=== PATIENT | female | born 1950 | race Hispanic/Latino ===

== ENCOUNTER 2017-07-20 09:16 | Inpatient (IN) | payer OTHER ==
[~2017-07-20] VITALS: Ht 149.9 cm; Wt 60.1 kg
[2017-07-20 10:07] LABS: HEMATOCRIT 24.1 % (36-48); MEAN CORPUSCULAR HEMOGLOBIN 36.3 pg (27.0-33.0); MEAN CORPUSCULAR HGB CONC 33.2 g/dL (32.0-36.0); MEAN CORPUSCULAR VOLUME 109.3 fL (79-99); NUCLEATED RED BLOOD CELLS 0.2 % (0.0-0.19); PLATELET COUNT (AUTO) 170 K/uL (130-400); RED CELL DISTRIBUTION WIDTH 14.1 % (11.0-15.5); WHITE BLOOD COUNT (AUTO) 2.8 K/uL (4.8-10.8)
[2017-07-20 10:18] LABS: CREATININE 5.5 mg/dL (0.5-1.5)
[2017-07-20 10:33] LABS: PARTIAL THROMBOPLASTIN TIME 25.7 SEC (26.3-35.5); PROTHROMBIN TIME 10.5 SEC (9.6-11.6)
[2017-07-20 11:13] LABS: LYMPHOCYTES % (MANUAL) 32 % (22-44); MAN.DIFF COMMENT-IMPRESSION MANUAL DIFFERENTIAL; MONOCYTES % (MANUAL) 8 % (2-9); SEGMENTED NEUTROPHILS % 60 % (40-70)
[2017-07-20 11:14] LABS: PLATELET MORPHOLOGY COMMENT LARGE PLTS PRESENT
[2017-07-20] MEDS ORDERED: COMPOUND IV MISC 1 EACH IVSOLN MISC PRN (12:00)
[2017-07-20] MEDS ORDERED: LIDOCAINE HCL 1% MDV 50ML VIAL ONE (12:51)
[2017-07-20] MEDS ORDERED: CEFAZOLIN 1GM / D5W 50ML 50 ML ONE (13:17)
[2017-07-20 14:20] VITALS: BP 173/60
[2017-07-20 15:48] LABS: ALBUMIN 3.5 g/dL (3.5-5.0); CREATININE 5.4 mg/dL (0.5-1.5)
[2017-07-20 16:00] VITALS: BP 157/60
[2017-07-20 16:02] LABS: HEMOGLOBIN A1C 5.5 % (4.0-6.0)
[2017-07-20 16:17] LABS: % IRON SATURATION 35.9 % (22-44)
[2017-07-20 19:00] VITALS: BP 115/50
[2017-07-20] MEDS ORDERED: HEPARIN SODIUM 5000UNIT/ML 1ML VIAL ONE (19:19)
[2017-07-20] MEDS ORDERED: LOSA100T29 PO (21:28)
[2017-07-20] MEDS ORDERED: EZET10TA26 PO (21:28)
[2017-07-20] MEDS ORDERED: RITO100T PO (21:28)
[2017-07-20] MEDS ORDERED: LEVO5TAB13 PO (21:28)
[2017-07-20] MEDS ORDERED: [UNRECOGNIZED DRUG - CODE] PO (21:28)
[2017-07-20] MEDS ORDERED: FURO40TA5 PO (21:28)
[2017-07-20] MEDS ORDERED: FENO145T37 PO (21:28)
[2017-07-20] MEDS ORDERED: METO50TA18 PO (21:28)
[2017-07-20] MEDS ORDERED: [UNRECOGNIZED DRUG - CODE] PO (21:28)
[2017-07-20] MEDS ORDERED: CYAN-35 PO (21:28)
[2017-07-20] MEDS ORDERED: LEVO75TA10 PO (21:28)
[2017-07-20] MEDS ORDERED: OMEG-125 PO (21:28)
[2017-07-20] MEDS ORDERED: DARU600T PO (21:28)
[2017-07-20] MEDS ORDERED: HYDR-4153 PO (21:28)
[2017-07-20] MEDS ORDERED: METO100T14 PO (21:28)
[2017-07-20] MEDS ORDERED: ERGO500014 PO (21:28)
[2017-07-20] MEDS ORDERED: ATOR40TA71 PO (21:28)
[2017-07-20] MEDS ORDERED: FOLI1TAB85 PO (21:28)
[2017-07-20] MEDS ORDERED: DEXTROSE 50%-WATER 50 ML DISP.SYRIN IV PRN (21:30)
[2017-07-20] MEDS ORDERED: ACETAMINOPHEN 325 MG TAB PO PRN (21:30)
[2017-07-20] MEDS ORDERED: SODIUM CHLORIDE 0.9% 1000ML 1,000 ML IV PRN (21:30)
[2017-07-20] MEDS ORDERED: SODIUM CHLORIDE 0.9% 10 ML VIAL IVP PRN (21:30)
[2017-07-20] MEDS ORDERED: 0.9% SODIUM CHLORIDE 250 ML IV BAG IV PRN (21:30)
[2017-07-20] MEDS ORDERED: HEPARIN SODIUM 5000UNIT/ML 1ML VIAL IJ PRN (21:30)
[2017-07-20] MEDS ORDERED: ALBUMIN (HUMAN) 25% 100 ML IV PRN (21:30)
[2017-07-20] MEDS ORDERED: GLUCAGON 1MG KIT 1 MG ML IM PRN (21:30)
[2017-07-20] MEDS: EPOETIN ALFA 10,000 UNIT/ML VIAL SQ SCH (22:40)
[2017-07-20 23:00] VITALS: BP_SYST 137; BP_SYST 155; BP_DIAS 46; BP_DIAS 84
[2017-07-21 03:00] VITALS: BP 124/44
[2017-07-21 05:28] LABS: WHITE BLOOD COUNT (AUTO) 3.3 K/uL (4.8-10.8)
[2017-07-21 05:37] LABS: PHOSPHORUS 4.2 mg/dL (2.5-4.9); POTASSIUM 4.2 mmol/L (3.5-5.1)
[2017-07-21 05:40] LABS: MEAN CORPUSCULAR VOLUME 108.8 fL (79-99); NUCLEATED RED BLOOD CELLS 0.1 % (0.0-0.19); PLATELET COUNT (AUTO) 147 K/uL (130-400); RED BLOOD CELL COUNT(AUTO) 1.88 MIL/uL (4.00-5.50)
[2017-07-21 05:42] LABS: HEMATOCRIT 20.5 % (36-48)
[2017-07-21 05:44] LABS: EOSINOPHILS % (MANUAL) 4 % (1-6); LYMPHOCYTES % (MANUAL) 28 % (22-44); MAN.DIFF COMMENT-IMPRESSION MANUAL DIFFERENTIAL; MONOCYTES % (MANUAL) 12 % (2-9); PLATELET MORPHOLOGY COMMENT SLIGHTLY DECREASED; SEGMENTED NEUTROPHILS % 56 % (40-70)
[2017-07-21] MEDS: INSULIN R PO SS1 SQ SCH ×4 (06:14→20:22)
[2017-07-21] MEDS ORDERED: FLU VACC QS2017-18 36MOS UP/PF 60 MCG/0.5 ML ML IM ONE (06:30)
[2017-07-21 07:22] VITALS: BP 146/60
[2017-07-21] MEDS ORDERED: LOSARTAN 100 MG TABLET PO SCH (09:00)
[2017-07-21 11:58] VITALS: BP 138/60
[2017-07-21] MEDS: LOSARTAN 100 MG TABLET PO SCH (12:07)
[2017-07-21] MEDS: DARUNAVIR ETHANOLATE 600 MG TABLET PO SCH ×2 (12:07→20:32)
[2017-07-21] MEDS: RITONAVIR 100 MG TABLET PO SCH ×2 (12:08→20:32)
[2017-07-21] MEDS: LAMIVUDINE 300 MG PO SCH (12:10)
[2017-07-21] MEDS: CETIRIZINE HCL 5 MG TABLET PO SCH (12:10)
[2017-07-21] MEDS: ZIDOVUDINE 300 MG PO SCH ×2 (12:11→20:33)
[2017-07-21] MEDS: IRON SUCROSE COMPLEX 100 MG in SODIUM CHLORIDE 0.9% 50 ML IV SCH (12:11)
[2017-07-21] MEDS ORDERED: ALBUMIN (HUMAN) 25% 100 ML IV PRN (12:30)
[2017-07-21] MEDS ORDERED: HEPARIN SODIUM 5000UNIT/ML 1ML VIAL IJ PRN (12:30)
[2017-07-21] MEDS ORDERED: 0.9% SODIUM CHLORIDE 250 ML IV BAG IV PRN (12:30)
[2017-07-21] MEDS ORDERED: SODIUM CHLORIDE 0.9% 1000ML 1,000 ML IV PRN (12:30)
[2017-07-21] MEDS ORDERED: CEFAZOLIN 2GM / 50 ML 50 ML IV SCH (14:30)
[2017-07-21] MEDS ORDERED: EPOETIN ALFA 10,000 UNIT/ML VIAL SQ SCH (15:00)
[2017-07-21] MEDS ORDERED: WATER FOR INJECTION,STERILE 20 ML VIAL IJ SCH (15:30)
[2017-07-21] MEDS: CEFAZOLIN SODIUM 1 GM VIAL IVP SCH (15:30)
[2017-07-21 16:26] VITALS: BP 145/51
[2017-07-21] MEDS: EPOETIN ALFA 10,000 UNIT/ML VIAL SQ SCH (17:18)
[2017-07-21 19:00] VITALS: BP 136/60
[2017-07-21] MEDS: ATORVASTATIN CALCIUM 40 MG TABLET PO SCH (20:32)
[2017-07-21] MEDS: EZETIMIBE 10 MG TAB PO SCH (20:33)
[2017-07-21] MEDS: FENOFIBRATE NANOCRYSTALLIZED 145 MG TAB PO SCH (20:33)
[2017-07-21] MEDS ORDERED: ONDANSETRON HCL 4 MG/2 ML VIAL IVP PRN (21:15)
[2017-07-21] MEDS ORDERED: ONDANSETRON HCL 4 MG/2 ML VIAL ONE (21:41)
[2017-07-21 23:00] VITALS: BP 142/57
[2017-07-22 03:00] VITALS: BP 143/69
[2017-07-22] MEDS: INSULIN R PO SS1 SQ SCH ×4 (06:42→20:59)
[2017-07-22] MEDS: LEVOTHYROXINE 75 MCG TABLET PO SCH (06:42)
[2017-07-22 07:20] VITALS: BP 137/55
[2017-07-22] MEDS: ZIDOVUDINE 300 MG PO SCH ×2 (09:00→21:00)
[2017-07-22] MEDS: DARUNAVIR ETHANOLATE 600 MG TABLET PO SCH ×2 (09:00→21:34)
[2017-07-22] MEDS: CETIRIZINE HCL 5 MG TABLET PO SCH (09:00)
[2017-07-22] MEDS: LAMIVUDINE 300 MG PO SCH (09:00)
[2017-07-22] MEDS: RITONAVIR 100 MG TABLET PO SCH ×2 (09:00→21:34)
[2017-07-22] MEDS: IRON SUCROSE COMPLEX 100 MG in SODIUM CHLORIDE 0.9% 50 ML IV SCH (09:00)
[2017-07-22 09:21] LABS: HEPATITIS Bs ANTIGEN SCREEN P Negative (Negative)
[2017-07-22] MEDS ORDERED: BUPIVACAINE/PF 0.25% 30ML VIAL IJ ONE (09:55)
[2017-07-22] MEDS ORDERED: LIDOCAINE HCL 1% 20 ML VIAL ONE (09:55)
[2017-07-22] MEDS ORDERED: SODIUM BICARB [NEONATAL] 4.2% 10ML SYG ONE (09:55)
[2017-07-22] MEDS ORDERED: PAPAVERINE HCL 30 MG/ML 2ML VIAL ONE (09:55)
[2017-07-22] MEDS ORDERED: THROMBIN-JMI 5000 UNIT/VIAL TP ONE (09:56)
[2017-07-22] MEDS ORDERED: NEOMY SULF/POLYMYXIN B SULFATE 1 ML AMPUL IR ONE (09:56)
[2017-07-22] MEDS ORDERED: OCTYL 2-CYANOACRYLATE 1 EACH TP ONE (09:57)
[2017-07-22] MEDS ORDERED: GENTAMICIN 80 MG/NS 100 ML PB 100 ML IV SCH (10:30)
[2017-07-22] MEDS: LOSARTAN 100 MG TABLET PO SCH (10:43)
[2017-07-22 12:00] VITALS: BP 149/65
[2017-07-22] MEDS: EPOETIN ALFA 10,000 UNIT/ML VIAL SQ SCH (15:00)
[2017-07-22 16:00] VITALS: BP 161/73
[2017-07-22 20:00] VITALS: BP 121/64
[2017-07-22] MEDS: ATORVASTATIN CALCIUM 40 MG TABLET PO SCH (21:34)
[2017-07-22] MEDS: FENOFIBRATE NANOCRYSTALLIZED 145 MG TAB PO SCH (22:12)
[2017-07-22] MEDS: EZETIMIBE 10 MG TAB PO SCH (22:12)
[2017-07-23] VITALS (29 sets, daily range): BP systolic 130–187; BP diastolic 52–88
[2017-07-23 04:15] LABS: HEMATOCRIT 21.2 % (36-48); MEAN CORPUSCULAR HEMOGLOBIN 37.9 pg (27.0-33.0); MEAN CORPUSCULAR HGB CONC 34.6 g/dL (32.0-36.0); MEAN CORPUSCULAR VOLUME 109.4 fL (79-99); NUCLEATED RED BLOOD CELLS 0.1 % (0.0-0.19); PLATELET COUNT (AUTO) 132 K/uL (130-400); RED BLOOD CELL COUNT(AUTO) 1.94 MIL/uL (4.00-5.50); RED CELL DISTRIBUTION WIDTH 14.2 % (11.0-15.5); WHITE BLOOD COUNT (AUTO) 2.9 K/uL (4.8-10.8)
[2017-07-23 04:20] LABS: CREATININE 5.2 mg/dL (0.5-1.5); PHOSPHORUS 4.8 mg/dL (2.5-4.9); POTASSIUM 4.3 mmol/L (3.5-5.1)
[2017-07-23 04:50] LABS: LYMPHOCYTES % (MANUAL) 36 % (22-44); MAN.DIFF COMMENT-IMPRESSION MANUAL DIFFERENTIAL; MONOCYTES % (MANUAL) 8 % (2-9); PLATELET MORPHOLOGY COMMENT SLIGHTLY DECREASED; SEGMENTED NEUTROPHILS % 56 % (40-70)
[2017-07-23] MEDS: LEVOTHYROXINE 75 MCG TABLET PO SCH (06:08)
[2017-07-23] MEDS: INSULIN R PO SS1 SQ SCH ×4 (06:08→21:00)
[2017-07-23] MEDS ORDERED: HEPARIN SODIUM 5000UNIT/ML 1ML VIAL IJ PRN (06:45)
[2017-07-23] MEDS ORDERED: 0.9% SODIUM CHLORIDE 250 ML IV BAG IV PRN (06:45)
[2017-07-23] MEDS ORDERED: SODIUM CHLORIDE 0.9% 1000ML 1,000 ML IV PRN (06:45)
[2017-07-23] MEDS ORDERED: ALBUMIN (HUMAN) 25% 100 ML IV PRN (06:45)
[2017-07-23] MEDS ORDERED: EPOETIN ALFA 10,000 UNIT/ML VIAL SQ SCH (09:00)
[2017-07-23] MEDS: ZIDOVUDINE 300 MG PO SCH ×2 (09:00→21:56)
[2017-07-23] MEDS ORDERED: DEXAMETHASONE SOD PHOSPHATE 10MG/ML 1ML VIAL ONE (12:37)
[2017-07-23] MEDS ORDERED: SUCCINYLCHOLINE 200MG/10ML SYR ONE (12:37)
[2017-07-23] MEDS ORDERED: ONDANSETRON HCL 4 MG/2 ML VIAL ONE (12:37)
[2017-07-23] MEDS ORDERED: NEOSTIGMINE METHYLSULFATE 1MG/ML IV ONE (12:37)
[2017-07-23] MEDS ORDERED: GLYCOPYRROLATE 0.2 MG/ML 5 ML VIAL ONE (12:37)
[2017-07-23] MEDS ORDERED: LIDOCAINE PF 2% 5ML ABBOJECT ONE (12:37)
[2017-07-23] MEDS ORDERED: GENTAMICIN 80 MG/NS 100 ML PB 100 ML IV ONE (12:39)
[2017-07-23] MEDS ORDERED: FENTANYL CITRATE PF 50 MCG/1 ML 2ML VIAL ONE ×2 (12:41→14:00)
[2017-07-23] MEDS ORDERED: PROPOFOL 10 MG/ML 20ML VIAL IV ONE (12:41)
[2017-07-23] MEDS ORDERED: MIDAZOLAM HCL 1 MG/ML 2ML VIAL ONE (12:41)
[2017-07-23] MEDS: CEFAZOLIN SODIUM 1 GM VIAL IVP SCH (13:00)
[2017-07-23] MEDS: RITONAVIR 100 MG TABLET PO SCH ×2 (17:23→21:56)
[2017-07-23] MEDS: IRON SUCROSE COMPLEX 100 MG in SODIUM CHLORIDE 0.9% 50 ML IV SCH (17:23)
[2017-07-23] MEDS: DARUNAVIR ETHANOLATE 600 MG TABLET PO SCH ×2 (17:24→21:56)
[2017-07-23] MEDS: LOSARTAN 100 MG TABLET PO SCH (17:24)
[2017-07-23] MEDS: CETIRIZINE HCL 5 MG TABLET PO SCH (17:25)
[2017-07-23] MEDS: EPOETIN ALFA 10,000 UNIT/ML VIAL SQ SCH (17:50)
[2017-07-23] MEDS: LAMIVUDINE 300 MG PO SCH (21:56)
[2017-07-23] MEDS: ATORVASTATIN CALCIUM 40 MG TABLET PO SCH (21:56)
[2017-07-23] MEDS: EZETIMIBE 10 MG TAB PO SCH (23:57)
[2017-07-23] MEDS: FENOFIBRATE NANOCRYSTALLIZED 145 MG TAB PO SCH (23:57)
[2017-07-24 04:00] VITALS: BP 166/63
[2017-07-24] MEDS: INSULIN R PO SS1 SQ SCH ×2 (06:44→10:35)
[2017-07-24] MEDS: LEVOTHYROXINE 75 MCG TABLET PO SCH (06:45)
[2017-07-24 08:00] VITALS: BP 142/72
[2017-07-24] MEDS: LAMIVUDINE 300 MG PO SCH (09:00)
[2017-07-24] MEDS: ZIDOVUDINE 300 MG PO SCH (09:00)
[2017-07-24] MEDS: IRON SUCROSE COMPLEX 100 MG in SODIUM CHLORIDE 0.9% 50 ML IV SCH (09:00)
[2017-07-24] MEDS: CETIRIZINE HCL 5 MG TABLET PO SCH (10:33)
[2017-07-24] MEDS: DARUNAVIR ETHANOLATE 600 MG TABLET PO SCH (10:33)
[2017-07-24] MEDS: RITONAVIR 100 MG TABLET PO SCH (10:34)
[2017-07-24] MEDS: LOSARTAN 100 MG TABLET PO SCH (10:34)
== END 2017-07-24 12:30 | disposition home or self-care (01) | DRG 673 ==
LOC: EDH 09:16 → EDHIP 09:17 → 3CH 14:25
PROVIDERS: ADMIT Internal Medicine Nephrology; ATTEND Internal Medicine Nephrology
PROC: 05HM33Z Insertion of Infusion Device into Right Internal Jugular Vein, Percutaneous Approach (ICD-10-PCS; 2017-07-20)
PROC: B543ZZA Ultrasonography of Right Jugular Veins, Guidance (ICD-10-PCS; 2017-07-20)
PROC: 5A1D70Z Performance of Urinary Filtration, Intermittent, Less than 6 Hours Per Day (ICD-10-PCS; 2017-07-20)
PROC: 5A1D70Z Performance of Urinary Filtration, Intermittent, Less than 6 Hours Per Day (ICD-10-PCS; 2017-07-21)
PROC: 5A1D70Z Performance of Urinary Filtration, Intermittent, Less than 6 Hours Per Day (ICD-10-PCS; 2017-07-23)
PROC: 03180ZD Bypass Left Brachial Artery to Upper Arm Vein, Open Approach (ICD-10-PCS; principal; 2017-07-23 13:12)
DX: I12.0 Hypertensive chronic kidney disease with stage 5 chronic kidney disease or end stage renal disease (principal); B20 Human immunodeficiency virus [HIV] disease; N18.6 End stage renal disease; E78.00 Pure hypercholesterolemia, unspecified; D64.9 Anemia, unspecified; E07.9 Disorder of thyroid, unspecified; Z99.2 Dependence on renal dialysis; Z91.15 Patient's noncompliance with renal dialysis; Z90.710 Acquired absence of both cervix and uterus; Z82.49 Family history of ischemic heart disease and other diseases of the circulatory system
CPT/HCPCS: 36415; 36558; 71045; 77001; 80048; 80061; 82040; 82565; 82728; 82948; 83036; 83540; 83550; 84100; 84520; 85025; 85610; 85730; 86701; 86704; 86706; 87340; 87390; 87520; 90935; 93005; 93971; C1750; G0008; J0330; J0690; J0885; J1100; J1580; J1644; J1756; J1815; J2001; J2250; J2405; J2440; J2704; J2710; J3010; J3490; J7030; Q2038

== ENCOUNTER 2017-12-10 10:01 | Day surgery (SDC) | payer OTHER ==
[~2017-12-10] VITALS: Ht 152.4 cm; Wt 58.2 kg
[~2017-12-10 10:01] MED LIST: ATOR40TA71 PO; CYAN-35 PO; DARU600T PO; EZET10TA26 PO; FENO145T37 PO; FOLI1TAB85 PO; LEVO5TAB13 PO; LEVO75TA10 PO; LOSA100T29 PO; METO100T14 PO; OMEG-125 PO; RITO100T PO; [UNRECOGNIZED DRUG - CODE] PO; [UNRECOGNIZED DRUG - CODE] PO
[2017-12-10 10:44] LABS: BASOPHILS % (AUTO) 0.5 % (0.0-5.0); EOSINOPHILS % (AUTO) 0.3 % (0.0-8.0); HEMATOCRIT 31.7 % (36-48); LYMPHOCYTES % (AUTO) 27.9 % (21.0-51.0); MEAN CORPUSCULAR HEMOGLOBIN 38.9 pg (27.0-33.0); MEAN CORPUSCULAR HGB CONC 33.8 g/dL (32.0-36.0); MONOCYTES % (AUTO) 12.1 % (3.0-13.0); NEUTROPHILS % (AUTO) 59.2 % (40.0-77.0); NUCLEATED RED BLOOD CELLS 0.1 % (0.0-0.19); PLATELET COUNT (AUTO) 120 K/uL (130-400); RED BLOOD CELL COUNT(AUTO) 2.76 MIL/uL (4.00-5.50); WHITE BLOOD COUNT (AUTO) 2.7 K/uL (4.8-10.8)
[2017-12-10 10:58] LABS: POTASSIUM 3.8 mmol/L (3.5-5.1)
[2017-12-10 11:00] LABS: PARTIAL THROMBOPLASTIN TIME 27.8 SEC (26.3-35.5); PROTHROMBIN TIME 10.5 SEC (9.6-11.6)
[2017-12-10] MEDS ORDERED: LIDOCAINE HCL 2% 20ML ONE (11:09)
[2017-12-10 11:11] VITALS: BP 187/86
[2017-12-10 12:10] LABS: EOSINOPHILS % (MANUAL) 1 % (1-6); LYMPHOCYTES % (MANUAL) 32 % (22-44); MONOCYTES % (MANUAL) 11 % (2-9); REACTIVE LYMPHOCYTES 3 % (0-0); SEGMENTED NEUTROPHILS % 53 % (40-70)
[2017-12-10 12:11] LABS: MAN.DIFF COMMENT-IMPRESSION MANUAL DIFFERENTIAL
[2017-12-10 12:12] LABS: PLATELET MORPHOLOGY COMMENT SLIGHTLY DECREASED
[2017-12-10 12:18] VITALS: BP 188/75
== END 2017-12-10 12:50 | disposition home or self-care (01) ==
LOC: DAH 10:01
PROVIDERS: ATTEND Internal Medicine Nephrology
DX: Z45.2 Encounter for adjustment and management of vascular access device (principal); Z87.891 Personal history of nicotine dependence; I12.0 Hypertensive chronic kidney disease with stage 5 chronic kidney disease or end stage renal disease; E11.22 Type 2 diabetes mellitus with diabetic chronic kidney disease; N18.6 End stage renal disease
CPT/HCPCS: 36415; 36589; 71045; 80048; 85025; 85610; 85730; A4606; J3490

== ENCOUNTER 2018-08-26 14:25 | Observation (INO) | payer OTHER ==
[~2018-08-26] VITALS: Ht 149.9 cm; Wt 55.3 kg
[~2018-08-26 14:25] MED LIST changes: -LAMI10SO PO
[2018-08-26 15:27] LABS: APPEARANCE,URINE Clear (CLEAR); BASOPHILS % (AUTO) 0.7 % (0.0-5.0); BILIRUBIN,URINE Negative (NEGATIVE); COLOR,URINE Yellow (YELLOW); EOSINOPHILS % (AUTO) 0.3 % (0.0-8.0); GLUCOSE, URINE (UA) Negative (NEGATIVE); HEMATOCRIT 31.7 % (36-48); KETONES,URINE Negative (NEGATIVE); LEUKOCYTE ESTERASE ,URINE Trace (NEGATIVE); LYMPHOCYTES % (AUTO) 37.2 % (21.0-51.0); MEAN CORPUSCULAR HEMOGLOBIN 37.9 pg (27.0-33.0); MEAN CORPUSCULAR VOLUME 114.8 fL (79-99); MONOCYTES % (AUTO) 11.5 % (3.0-13.0); NEUTROPHILS % (AUTO) 50.3 % (40.0-77.0); NITRATE,URINE Negative (NEGATIVE); NUCLEATED RED BLOOD CELLS 0.1 % (0.0-0.19); OCCULT BLOOD,URINE Trace (NEGATIVE); PH,URINE 8.5 (5.0-8.0); PLATELET COUNT (AUTO) 193 K/uL (130-400); PROTEIN,URINE POS 2+ (NEGATIVE); RED BLOOD CELL COUNT(AUTO) 2.77 MIL/uL (4.00-5.50); RED CELL DISTRIBUTION WIDTH 17.1 % (11.0-15.5); UROBILINOGEN,URINE 0.2 mg/dL (0.2-1.0); WHITE BLOOD COUNT (AUTO) 2.5 K/uL (4.8-10.8)
[2018-08-26 15:38] LABS: BACTERIA,URINE Rare /HPF (None Seen); RBC,URINE 0-1 /HPF (0-1); SQUAMOUS EPITHELIAL CELL,UR 0-2 /HPF (0-2); WBC,URINE 0-1 /HPF (0-1)
[2018-08-26 15:52] LABS: POTASSIUM 3.4 mmol/L (3.5-5.1)
[2018-08-26 15:56] LABS: ALBUMIN 3.8 g/dL (3.5-5.0); BILIRUBIN,TOTAL 0.6 mg/dL (0.2-1.0); TOTAL PROTEIN, SERUM 8.2 g/dL (6.0-8.3)
[2018-08-26 16:32] LABS: BASOPHILS % (MANUAL) 1 % (0-2); LYMPHOCYTES % (MANUAL) 31 % (22-44); MAN.DIFF COMMENT-IMPRESSION MANUAL DIFFERENTIAL; MONOCYTES % (MANUAL) 7 % (2-9); PLATELET MORPHOLOGY COMMENT ADEQUATE; SEGMENTED NEUTROPHILS % 61 % (40-70)
[2018-08-26] MEDS ORDERED: SODIUM CHLORIDE 0.9% 1000ML 1,000 ML IV SCH (16:48)
[2018-08-26] MEDS ORDERED: ZOSYN 3.375GM+NS 50ML 50 ML IV ONE (16:58)
[2018-08-26] MEDS ORDERED: MORPHINE SULFATE 2 MG/ML 1ML SYG IV PRN (17:00)
[2018-08-26] MEDS ORDERED: ONDANSETRON HCL 4 MG/2 ML VIAL IV PRN (17:00)
[2018-08-26] MEDS ORDERED: ACETAMINOPHEN 325 MG TAB PO PRN ×2 (17:00→19:15)
[2018-08-26] MEDS ORDERED: POTASSIUM CHLORIDE 10% ELIXIR 20 MEQ/15 ML UDCUP PO PRN (17:00)
[2018-08-26] MEDS ORDERED: LIDOCAINE HCL-MPF 1% 2ML VIAL IVP PRN (17:00)
[2018-08-26] MEDS ORDERED: POTASSIUM CHLORIDE 10MEQ/100ML 100 ML IV PRN (17:00)
[2018-08-26] MEDS ORDERED: POTASSIUM CHLORIDE 20 MEQ ERTAB PO PRN (17:00)
[2018-08-26] MEDS ORDERED: TETANUS/DIPHTHERIA TOXOID [ADULT] 0.5 ML VIAL IM ONE (18:05)
[2018-08-26] MEDS ORDERED: ZOSYN 3.375GM+NS 50ML 50 ML IV SCH ×2 (19:15→21:00)
[2018-08-26] MEDS ORDERED: ONDANSETRON HCL 4 MG/2 ML VIAL IVP PRN (19:15)
[2018-08-26] MEDS ORDERED: PHARMACY COMMUNICATION MISC SCH (19:30)
[2018-08-26] MEDS ORDERED: SODIUM CHLORIDE 0.9% 10 ML VIAL IVP PRN (19:30)
--- NOTE | 2018-08-26 21:07 | NUR ---
NOTE PATIENT ARRIVED FROM ED TO ROOM. SON ACCOMPANYING HER.
[2018-08-26 21:26] VITALS: BP 183/69
[2018-08-26] MEDS ORDERED: LAMI10SO PO (22:58)
[2018-08-26] MEDS ORDERED: MAGNESIUM CITRATE 296 ML SOLUTION PO ONE (23:30)
[2018-08-26] MEDS ORDERED: HYDROMORPHONE HCL 2 MG/ML VIAL IVP PRN (23:45)
[2018-08-27] VITALS (7 sets, daily range): BP systolic 129–174; BP diastolic 50–70
[2018-08-27] MEDS ORDERED: MAGNESIUM CITRATE 296 ML SOLUTION ONE (01:57)
[2018-08-27 04:51] LABS: HEMATOCRIT 29.6 % (36-48); MEAN CORPUSCULAR HEMOGLOBIN 37.9 pg (27.0-33.0); MEAN CORPUSCULAR HGB CONC 32.6 g/dL (32.0-36.0); MEAN CORPUSCULAR VOLUME 116.2 fL (79-99); NUCLEATED RED BLOOD CELLS 0.1 % (0.0-0.19); PLATELET COUNT (AUTO) 170 K/uL (130-400); RED BLOOD CELL COUNT(AUTO) 2.55 MIL/uL (4.00-5.50); RED CELL DISTRIBUTION WIDTH 17.3 % (11.0-15.5); WHITE BLOOD COUNT (AUTO) 3.6 K/uL (4.8-10.8)
[2018-08-27 05:12] LABS: CREATININE 4.6 mg/dL (0.5-1.5); POTASSIUM 3.4 mmol/L (3.5-5.1)
[2018-08-27] MEDS: ZOSYN 3.375GM+NS 50ML 50 ML IV SCH ×2 (05:19→16:00)
--- NOTE | 2018-08-27 06:00 | NUR ---
NOTE CONTACTED DR. Lyudmila JOE TO INQUIRE ABOUT DR. FITZPATRICK'S ORDER FOR CT SCAN. HE SAYS YES PATIENT CAN HAVE EXAM AND HEMODIALYSIS LATER IN THE DAY TO REMOVE CONTRAST. INFORMED PATIENT.
[2018-08-27] MEDS ORDERED: DIATR MEGLU/DIATRIZOATE SODIUM 30 ML BOTTLE ONE (07:42)
--- NOTE | 2018-08-27 08:00 | NUR ---
PT AAO X 3 REVIEW PLAN OF CARE . NPO STATUS. AND CALL LIGHT IN REACH..
[2018-08-27] MEDS: PANTOPRAZOLE SODIUM 40 MG TABLET.DR PO SCH (09:00)
[2018-08-27] MEDS ORDERED: PANTOPRAZOLE 40 MG/VIAL IVP SCH (09:00)
[2018-08-27] MEDS ORDERED: ENOXAPARIN SODIUM 40 MG/0.4 ML SYRINGE SQ SCH (09:00)
[2018-08-27] MEDS ORDERED: IOHEXOL-350 75 ML VIAL IV ONE (10:55)
--- NOTE | 2018-08-27 13:44 | NUR ---
DCP -Pt is independent, lives with her son Nacho Parra [phone]. Pt goes to [facility] [place] 3rd shift. Pt has no DME or in home care services. Denies dc needs at this time, plan is home Addendum: 08/27/18 at 1344 by KARON DOHERTY SS Amended: Links added.
[2018-08-27] MEDS ORDERED: SODIUM CHLORIDE 0.9% 1000ML 1,000 ML IV PRN (14:15)
[2018-08-27] MEDS ORDERED: NITROGLYCERIN 0.4 MG SL TAB SL PRN (14:15)
[2018-08-27] MEDS ORDERED: HEPARIN SODIUM 5000UNIT/ML 1ML VIAL IJ PRN (14:15)
[2018-08-27] MEDS ORDERED: 0.9% SODIUM CHLORIDE 1000 ML IV BAG IV PRN (14:15)
--- NOTE | 2018-08-27 18:00 | NUR ---
DIALYSIS TREATMENT COMPLETED AT 1630 WITH A REMOVAL OF 1100 CC OF FLUID , PER DIALYSIS TREATMENT SEE DIALYSIS FLOW SHEET FOR V/S AND TREATMENT .. TOLERATE WELL , NPO . PENDING RESULTS FROM CT SCAN, AND DR. BOOGIE RECOMMENDATION CARE . //
[2018-08-27] MEDS ORDERED: EZETIMIBE 10 MG TAB PO SCH (21:00)
[2018-08-27] MEDS: DARUNAVIR ETHANOLATE 600 MG TABLET PO SCH (21:35)
[2018-08-27] MEDS: RITONAVIR 100 MG TABLET PO SCH (21:36)
[2018-08-27] MEDS: ZIDOVUDINE 100 MG CAPSULE PO SCH (21:36)
[2018-08-28] MEDS: ZOSYN 3.375GM+NS 50ML 50 ML IV SCH ×2 (03:06→16:00)
[2018-08-28 03:10] VITALS: BP 147/58
[2018-08-28 04:27] LABS: HEMATOCRIT 26.4 % (36-48); MEAN CORPUSCULAR HEMOGLOBIN 38.9 pg (27.0-33.0); MEAN CORPUSCULAR HGB CONC 34.2 g/dL (32.0-36.0); MEAN CORPUSCULAR VOLUME 113.9 fL (79-99); NUCLEATED RED BLOOD CELLS 0.1 % (0.0-0.19); PLATELET COUNT (AUTO) 155 K/uL (130-400); RED BLOOD CELL COUNT(AUTO) 2.32 MIL/uL (4.00-5.50); RED CELL DISTRIBUTION WIDTH 17.1 % (11.0-15.5); WHITE BLOOD COUNT (AUTO) 2.4 K/uL (4.8-10.8)
[2018-08-28 04:37] LABS: CREATININE 3.2 mg/dL (0.5-1.5); PHOSPHORUS 3.6 mg/dL (2.5-4.9); POTASSIUM 3.6 mmol/L (3.5-5.1)
[2018-08-28 04:44] LABS: BASOPHILS % (MANUAL) 2 % (0-2); EOSINOPHILS % (MANUAL) 1 % (1-6); LYMPHOCYTES % (MANUAL) 41 % (22-44); MAN.DIFF COMMENT-IMPRESSION MANUAL DIFFERENTIAL; MONOCYTES % (MANUAL) 11 % (2-9); SEGMENTED NEUTROPHILS % 45 % (40-70)
[2018-08-28] MEDS ORDERED: LEVOTHYROXINE 75 MCG TABLET PO SCH (06:30)
[2018-08-28 08:00] VITALS: BP 113/58
[2018-08-28 08:18] LABS: HEPATITIS Bs ANTIGEN SCREEN P Negative (Negative)
[2018-08-28] MEDS ORDERED: ATORVASTATIN CALCIUM 40 MG TABLET PO SCH (09:00)
[2018-08-28] MEDS ORDERED: LAMIVUDINE PO SCH (09:00)
[2018-08-28] MEDS ORDERED: LOSARTAN 100 MG TABLET PO SCH (09:00)
[2018-08-28] MEDS: ZIDOVUDINE 100 MG CAPSULE PO SCH (09:17)
[2018-08-28] MEDS: RITONAVIR 100 MG TABLET PO SCH (09:18)
[2018-08-28] MEDS: PANTOPRAZOLE SODIUM 40 MG TABLET.DR PO SCH (09:18)
[2018-08-28] MEDS: DARUNAVIR ETHANOLATE 600 MG TABLET PO SCH (09:18)
[2018-08-28 12:00] VITALS: BP 142/57
[2018-08-28 16:00] VITALS: BP 171/62
--- NOTE | 2018-08-29 12:15 | NUR ---
prescription call in to pt's preferred pharmacy as directed by greenhouse laborer for levaquin 500 mg po q48 hrs for 8 days and flagyl 500 mg po tid for 8 days spoke with pharmacist brianna from [facility] pharmacy at [facility] sup aware
== END 2018-08-28 19:16 | disposition home or self-care (01) ==
LOC: EDH 14:25 → EDHIP 16:48 → INTOOBSV 16:48 → 4BH 21:05
PROVIDERS: ADMIT Internal Medicine Critical Care Medicine; ATTEND Internal Medicine Critical Care Medicine
DX: R10.31 Right lower quadrant pain (principal); I12.0 Hypertensive chronic kidney disease with stage 5 chronic kidney disease or end stage renal disease; N18.6 End stage renal disease; B20 Human immunodeficiency virus [HIV] disease; D64.9 Anemia, unspecified; E03.9 Hypothyroidism, unspecified; E11.21 Type 2 diabetes mellitus with diabetic nephropathy; E11.22 Type 2 diabetes mellitus with diabetic chronic kidney disease; E78.00 Pure hypercholesterolemia, unspecified; E78.5 Hyperlipidemia, unspecified; I25.10 Atherosclerotic heart disease of native coronary artery without angina pectoris; J44.9 Chronic obstructive pulmonary disease, unspecified; Z82.49 Family history of ischemic heart disease and other diseases of the circulatory system; Z90.710 Acquired absence of both cervix and uterus; Z99.2 Dependence on renal dialysis; Z23 Encounter for immunization
CPT/HCPCS: 36415 ×3; 74177; 76700; 80048 ×2; 80053; 81001; 82040; 84100; 85025 ×2; 85027; 86701; 86704; 86706; 87340; 87390; 87520; 90471; 90714; 96365; 96366 ×2; 99284; G0378 ×50; J2543 ×3; Q9963; Q9967; 90935; G0257

== ENCOUNTER → 2018-08-26 | Outpatient (CLI) | payer OTHER ==
[~2018-08-26] MED LIST changes: +LAMI10SO PO; -LOSA100T29 PO; +LOSA100T58 PO
== END | disposition home or self-care (01) ==
LOC: RAH 10:04
PROVIDERS: ATTEND Internal Medicine
DX: R10.31 Right lower quadrant pain (principal); I70.0 Atherosclerosis of aorta; I51.7 Cardiomegaly
CPT/HCPCS: 74176

== ENCOUNTER 2018-10-11 00:24 | Observation (INO) | payer OTHER ==
[~2018-10-11] VITALS: Ht 149.9 cm; Wt 57.2 kg
[~2018-10-11 00:24] MED LIST changes: +LAMI10SO PO; -METO100T14 PO; -[UNRECOGNIZED DRUG - CODE] PO
[2018-10-11] MEDS ORDERED: LABETALOL 20 MG/4 ML DISP.SYRIN IV ONE (00:53)
[2018-10-11 01:00] LABS: BASOPHILS % (AUTO) 0.3 % (0.0-5.0); EOSINOPHILS % (AUTO) 0.1 % (0.0-8.0); HEMATOCRIT 39.2 % (36-48); LYMPHOCYTES % (AUTO) 22.9 % (21.0-51.0); MEAN CORPUSCULAR HGB CONC 32.9 g/dL (32.0-36.0); MEAN CORPUSCULAR VOLUME 118.3 fL (79-99); MONOCYTES % (AUTO) 6.7 % (3.0-13.0); NUCLEATED RED BLOOD CELLS 0.1 % (0.0-0.19); PLATELET COUNT (AUTO) 165 K/uL (130-400); RED BLOOD CELL COUNT(AUTO) 3.32 MIL/uL (4.00-5.50); WHITE BLOOD COUNT (AUTO) 5.3 K/uL (4.8-10.8)
[2018-10-11 01:13] LABS: POTASSIUM 5.4 mmol/L (3.5-5.1)
[2018-10-11 01:17] LABS: ALBUMIN 3.6 g/dL (3.5-5.0); BILIRUBIN,TOTAL 0.5 mg/dL (0.2-1.0); TOTAL PROTEIN, SERUM 7.5 g/dL (6.0-8.3)
[2018-10-11 04:05] VITALS: BP 154/80
[2018-10-11] MEDS ORDERED: ACETAMINOPHEN 325 MG TAB PO PRN (04:15)
[2018-10-11] MEDS ORDERED: ONDANSETRON HCL 4 MG/2 ML VIAL IVP PRN (04:15)
--- NOTE | 2018-10-11 04:15 | NUR ---
ADMIT PT ADMITTED TO ROOM 312, AAOX3. NO COMPLAINTS VERBALIZED. NO DISTRESS NOTED. ADMISSION CARE DONE. ADMISSION DATA BASE COMPLETED. PLACED ON TELE MONITORING AT [facility] ON THE [address] HR. TEDS PLACED TO BLE. KEPT COMFORTABLE IN BED WITH HOB ELEVATED. KEPT ON O2 AT 2LPM VIA NC. ORIENTED TO ROOM AND UNIT. IN FOR MORE CARE AND MANAGEMENT. Addendum: 10/11/18 at 0545 by ELVIN DIGGS RN RN Amended: Links added.
[2018-10-11] MEDS ORDERED: LEVOTHYROXINE 75 MCG TABLET PO SCH (06:30)
--- NOTE | 2018-10-11 07:57 | NUR ---
CALL DIALYSIS NURSE,NEPTALI, CALLED AND INFORMED OF HD FOR PT. ENDORSED TO AM SHIFT FOR MORE CARE AND MANAGEMENT.
[2018-10-11 08:00] VITALS: BP 162/74
--- NOTE | 2018-10-11 08:19 | NUR ---
dr. calderón notified re; consult ESRD okay to do dialysis today will stop by to see patient.
--- NOTE | 2018-10-11 08:45 | NUR ---
DR JOE NOTIFIED OF CONSULT STATES; MAY D/C PATIENT FROM [facility] AFTER HD COMPLETED. OR WHEN CLEARED BY HOSPITALIST. STATES ELEVATED TROPONINS ARE RELATED TO ESRD.
[2018-10-11] MEDS ORDERED: RITONAVIR 100 MG TABLET PO SCH (09:00)
[2018-10-11] MEDS ORDERED: DARUNAVIR ETHANOLATE 600 MG TABLET PO SCH (09:00)
[2018-10-11] MEDS ORDERED: FOLIC ACID/VITAMIN B COMP W-C 1 MG CAPSULE PO SCH (09:00)
[2018-10-11] MEDS ORDERED: CYANOCOBALAMIN (VITAMIN B-12) 1,000 MCG TABLET PO SCH (09:00)
[2018-10-11] MEDS ORDERED: FISH OIL 1000 MG/CAP PO SCH (09:00)
[2018-10-11] MEDS ORDERED: ZIDOVUDINE 100 MG CAPSULE PO SCH (09:00)
[2018-10-11] MEDS ORDERED: LOSARTAN 100 MG TABLET PO SCH (09:00)
[2018-10-11 11:35] VITALS: BP 165/83
--- NOTE | 2018-10-11 14:40 | NUR ---
Rec'd call from lab to report troponin of 0.67. Notified primary nurse Davie.
--- NOTE | 2018-10-11 15:00 | NUR ---
CM NOTE CHART REVIEWED, OBS STATUS, PT TO BE DISCHARGED, NO CONCERNS EXPRESSED TO PRIMARY RN, NO TRIGGERS TO CM. IA DEFERRED Addendum: 10/12/18 at 1758 by PARKER FERNÁNDEZ RN CM Amended: Links added.
--- NOTE | 2018-10-11 15:01 | NUR ---
RD Notification Patient with [facility] dialysis diet in place. Patient reports good appetite and PO intake at 100% at time of visit. Patient with no GI distress. Patient LBM 10/10/18. Patient monitored labs: K 5.4, BUN 57, Cr 6.0, GFR 7, Glu 134, Mg 2.50, AST 117, Trop I 0.61, Alb 3.6. RD to continue to monitor. Please notify RD as nutritional concerns arise. Thank you. Addendum: 10/11/18 at [address] RD Amended: Links added.
--- NOTE | 2018-10-11 15:29 | NUR ---
DIALYSIS COMPLETED, 1L. REMOVED. NO DISTRESS, NO BLEEDING, BP 156/88. WILL GIVE BP MEDS, SINCE MD IS AWARE TO GIVE MEDS AFTER HD.
--- NOTE | 2018-10-11 15:33 | NUR ---
DR. JOE NOTIFIED OF TROPONIN OF 0.61 STATES IS RELATED TO ESRD.
[2018-10-11 16:00] VITALS: BP 153/73
--- NOTE | 2018-10-11 18:45 | NUR ---
D/C HOME USING TEACH BACK TECHNIQUE RE; HOME MEDS, S/S TO WATCH FOR AND WHEN TO CALL 911 OR MD. AAOX3, IV OUT INTACT, NO RESPIRATORY DISTRESS, NO CHEST PAIN. Follow up with Dr. Candice Waddell within 1 week. Please call the office at [phone] to schedule the appointment. Dr. Lyudmila Ritter will follow at hemodialysis center. Call sooner or return to ER with any concerns. Dial 911 for emergencies. If shortness of breath or chest pain does not resolve with rest call 911. son arturo at bedside.
[2018-10-11] MEDS ORDERED: LORATADINE 10 MG TABLET PO SCH (21:00)
[2018-10-11] MEDS ORDERED: EZETIMIBE 10 MG TAB PO SCH (21:00)
[2018-10-11] MEDS ORDERED: ATORVASTATIN CALCIUM 40 MG TABLET PO SCH (21:00)
[2018-10-11] MEDS ORDERED: LAMIVUDINE PO SCH (21:00)
[2018-10-11] MEDS ORDERED: FENOFIBRATE NANOCRYSTALLIZED 145 MG TAB PO SCH (21:00)
== END 2018-10-11 18:50 | disposition home or self-care (01) ==
LOC: EDH 00:24 → EDHIP 03:34 → 3BH 03:57
PROVIDERS: ADMIT Internal Medicine Critical Care Medicine; ATTEND Internal Medicine Critical Care Medicine
DX: I12.0 Hypertensive chronic kidney disease with stage 5 chronic kidney disease or end stage renal disease (principal); N18.6 End stage renal disease; E11.22 Type 2 diabetes mellitus with diabetic chronic kidney disease; E78.5 Hyperlipidemia, unspecified; E87.70 Fluid overload, unspecified; I87.8 Other specified disorders of veins; D64.9 Anemia, unspecified; Z21 Asymptomatic human immunodeficiency virus [HIV] infection status; Z91.11 Patient's noncompliance with dietary regimen; Z91.19 Patient's noncompliance with other medical treatment and regimen; Z99.2 Dependence on renal dialysis; Z79.899 Other long term (current) drug therapy
CPT/HCPCS: 36415; 71045; 80053; 82550; 83735; 84484 ×3; 85025; 93005; 99291; G0378 ×15; 90935; G0257

== ENCOUNTER → 2020-04-03 | Outpatient (CLI) | payer OTHER ==
[~2020-04-03] MED LIST changes: -EZET10TA26 PO; +EZET10TA48 PO; +FENO145T26 PO; -FENO145T37 PO; +[UNRECOGNIZED DRUG - CODE] PO; -[UNRECOGNIZED DRUG - CODE] PO
== END | disposition home or self-care (01) ==
LOC: RAH 10:00
PROVIDERS: ATTEND Internal Medicine
DX: N26.1 Atrophy of kidney (terminal) (principal); N28.1 Cyst of kidney, acquired; K76.9 Liver disease, unspecified; I70.0 Atherosclerosis of aorta
CPT/HCPCS: 76700

== ENCOUNTER 2020-08-13 18:33 | Observation (INO) | payer OTHER ==
[~2020-08-13] VITALS: Ht 149.9 cm; Wt 56.7 kg
[2020-08-13 19:57] LABS: BASOPHILS % (AUTO) 0.5 % (0.0-5.0); EOSINOPHILS % (AUTO) 0.5 % (0.0-8.0); HEMATOCRIT 33.1 % (36-48); LYMPHOCYTES % (AUTO) 16.9 % (21.0-51.0); MEAN CORPUSCULAR HEMOGLOBIN 37.6 pg (27.0-33.0); MEAN CORPUSCULAR HGB CONC 32.9 g/dL (32.0-36.0); MEAN CORPUSCULAR VOLUME 114.1 fL (79-99); MONOCYTES % (AUTO) 6.8 % (3.0-13.0); NEUTROPHILS % (AUTO) 74.8 % (40.0-77.0); PLATELET COUNT (AUTO) 143 K/uL (130-400); RED CELL DISTRIBUTION WIDTH 16.3 % (11.0-15.5); WHITE BLOOD COUNT (AUTO) 4.4 K/uL (4.8-10.8)
[2020-08-13 20:14] LABS: B-TYPE NATRIURETIC PEPTIDE 708 pg/mL (0-100)
[2020-08-13 20:18] LABS: INR 1.07 (0.85-1.15); PROTHROMBIN TIME 11.6 SEC (9.6-11.6)
[2020-08-13 20:19] LABS: PARTIAL THROMBOPLASTIN TIME 26.4 SEC (26.3-35.5)
[2020-08-13 20:22] LABS: ALBUMIN 3.1 g/dL (3.5-5.0); BILIRUBIN,TOTAL 0.7 mg/dL (0.2-1.0); CREATININE 7.8 mg/dL (0.5-1.5); TOTAL PROTEIN, SERUM 7.3 g/dL (6.0-8.3)
[2020-08-13 20:23] LABS: POTASSIUM 5.4 mmol/L (3.5-5.1)
[2020-08-14 06:12] LABS: BASOPHILS % (AUTO) 0.6 % (0.0-5.0); EOSINOPHILS % (AUTO) 0.6 % (0.0-8.0); HEMATOCRIT 29.6 % (36-48); LYMPHOCYTES % (AUTO) 26.9 % (21.0-51.0); MEAN CORPUSCULAR HEMOGLOBIN 37.6 pg (27.0-33.0); MEAN CORPUSCULAR HGB CONC 32.8 g/dL (32.0-36.0); MEAN CORPUSCULAR VOLUME 114.7 fL (79-99); MONOCYTES % (AUTO) 11.4 % (3.0-13.0); NEUTROPHILS % (AUTO) 60.2 % (40.0-77.0); PLATELET COUNT (AUTO) 136 K/uL (130-400); RED BLOOD CELL COUNT(AUTO) 2.58 MIL/uL (4.00-5.50); WHITE BLOOD COUNT (AUTO) 3.6 K/uL (4.8-10.8)
[2020-08-14 06:33] LABS: POTASSIUM 4.7 mmol/L (3.5-5.1)
[2020-08-14 06:35] LABS: CREATININE 8.5 mg/dL (0.5-1.5)
[2020-08-14 08:51] VITALS: BP 149/84
[2020-08-14 11:37] VITALS: BP 161/78
[2020-08-14] MEDS ORDERED: LOSA100T58 PO (11:38)
[2020-08-14] MEDS ORDERED: DOLU50TA PO (11:38)
[2020-08-14] MEDS ORDERED: FENO145T26 PO (11:38)
[2020-08-14] MEDS ORDERED: PANT20TA PO (11:38)
[2020-08-14] MEDS ORDERED: [UNRECOGNIZED DRUG - CODE] PO (11:38)
[2020-08-14] MEDS ORDERED: LAMI10SO PO (11:38)
[2020-08-14] MEDS ORDERED: EZET10TA48 PO (11:38)
[2020-08-14] MEDS ORDERED: OMEG100033 PO (11:38)
[2020-08-14] MEDS ORDERED: LEVO75 PO (11:38)
[2020-08-14] MEDS ORDERED: LEVO5TAB13 PO (11:38)
[2020-08-14] MEDS ORDERED: ERGO50CA PO (11:38)
[2020-08-14] MEDS ORDERED: COMPOUND PO MISCELLANEOUS 1 EACH MISC MISC PRN (13:30)
[2020-08-14 15:48] VITALS: BP 147/74
[2020-08-14] MEDS ORDERED: ATORVASTATIN CALCIUM 40 MG TABLET PO SCH (21:00)
[2020-08-14] MEDS ORDERED: DARUNAVIR ETHANOLATE 600 MG PO SCH ×2 (21:00)
[2020-08-14] MEDS ORDERED: NON-FORMULARY MEDICATION 1 EACH (Levocetirizine Dihydrochloride 5 MG) PO SCH (21:00)
[2020-08-14] MEDS ORDERED: FENOFIBRATE NANOCRYSTALLIZED 145 MG TAB PO SCH (21:00)
[2020-08-14] MEDS ORDERED: ZIDOVUDINE 300 MG PO SCH (21:00)
[2020-08-14] MEDS ORDERED: RITONAVIR 100 MG PO SCH (21:00)
[2020-08-14] MEDS ORDERED: EZETIMIBE 10 MG TAB PO SCH (21:00)
[2020-08-14] MEDS ORDERED: LAMIVUDINE 10 MG/ML PO SCH (21:00)
[2020-08-14 21:19] VITALS: BP 147/89
[2020-08-14] MEDS: ZIDOVUDINE 100 MG CAPSULE PO SCH (21:56)
[2020-08-15 01:06] VITALS: BP 137/58
[2020-08-15 04:55] VITALS: BP 141/68
[2020-08-15 06:10] LABS: BASOPHILS % (AUTO) 0.7 % (0.0-5.0); HEMATOCRIT 27.9 % (36-48); LYMPHOCYTES % (AUTO) 27.8 % (21.0-51.0); MEAN CORPUSCULAR HEMOGLOBIN 37.8 pg (27.0-33.0); MEAN CORPUSCULAR HGB CONC 33.7 g/dL (32.0-36.0); MONOCYTES % (AUTO) 12.3 % (3.0-13.0); NEUTROPHILS % (AUTO) 57.9 % (40.0-77.0); PLATELET COUNT (AUTO) 112 K/uL (130-400); RED BLOOD CELL COUNT(AUTO) 2.49 MIL/uL (4.00-5.50); RED CELL DISTRIBUTION WIDTH 15.5 % (11.0-15.5)
[2020-08-15 06:20] LABS: CREATININE 4.7 mg/dL (0.5-1.5); PHOSPHORUS 4.8 mg/dL (2.5-4.9)
[2020-08-15] MEDS ORDERED: LEVOTHYROXINE 75 MCG TABLET PO SCH (06:30)
[2020-08-15 07:24] LABS: EOSINOPHILS % (MANUAL) 1 % (1-6); LYMPHOCYTES % (MANUAL) 29 % (22-44); MAN.DIFF COMMENT-IMPRESSION MANUAL DIFFERENTIAL; MONOCYTES % (MANUAL) 9 % (2-9); SEGMENTED NEUTROPHILS % 61 % (40-70)
[2020-08-15 07:25] LABS: PLATELET MORPHOLOGY COMMENT SLIGHTLY DECREASED
[2020-08-15] MEDS ORDERED: Vitamin B Complex/Vit C/Folic Acid PO SCH (09:00)
[2020-08-15] MEDS ORDERED: DHA PO SCH (09:00)
[2020-08-15] MEDS ORDERED: [UNRECOGNIZED DRUG - OTHER] PO SCH (09:00)
[2020-08-15] MEDS ORDERED: LOSARTAN 100 MG TABLET PO SCH (09:00)
[2020-08-15] MEDS: ZIDOVUDINE 100 MG CAPSULE PO SCH (09:00)
[2020-08-15] MEDS ORDERED: FISH OIL 1000 MG/CAP PO SCH (09:00)
[2020-08-15] MEDS ORDERED: CYANOCOBALAMIN (VITAMIN B-12) 1,000 MCG TABLET PO SCH (09:00)
[2020-08-15] MEDS ORDERED: NON-FORMULARY MEDICATION 1 EACH (Vit B Cmplx 3/FA/Vit C/Biotin (Rena-Vite Rx Tablet) 1 EAC PO SCH (09:00)
[2020-08-15] MEDS ORDERED: FISH OIL PO SCH (09:00)
[2020-08-15] MEDS ORDERED: NON-FORMULARY MEDICATION 1 EACH (Cyanocobalamin (Vitamin B-12) (Vitamin B-12) 1,000 MCG) PO SCH (09:00)
[2020-08-15] MEDS ORDERED: EPA PO SCH (09:00)
[2020-08-15] MEDS ORDERED: OMEGA PO SCH (09:00)
[2020-08-15 10:37] VITALS: BP 152/83
[2020-08-15 12:00] VITALS: BP 123/63
[2020-08-15] MEDS ORDERED: EPOETIN ALFA-EPBX (ESRD) 10,000 UNIT/ML VIAL SQ ONE (21:00)
== END 2020-08-15 18:00 | disposition home or self-care (01) ==
LOC: EDH 18:33 → INTOOBSV 23:21 → EDHIP 23:21 → OBSVTOIN 23:21 → 3DH 08-14 08:39
PROVIDERS: ADMIT Internal Medicine Critical Care Medicine; ATTEND Internal Medicine Critical Care Medicine
DX: R06.02 Shortness of breath (principal); Z20.822 Contact with and (suspected) exposure to COVID-19; I12.0 Hypertensive chronic kidney disease with stage 5 chronic kidney disease or end stage renal disease; E11.22 Type 2 diabetes mellitus with diabetic chronic kidney disease; N18.6 End stage renal disease; E87.70 Fluid overload, unspecified; E78.5 Hyperlipidemia, unspecified; D64.9 Anemia, unspecified; E87.5 Hyperkalemia; I25.10 Atherosclerotic heart disease of native coronary artery without angina pectoris; Z99.2 Dependence on renal dialysis; Z79.899 Other long term (current) drug therapy
CPT/HCPCS: 36415 ×3; 71045; 80048 ×2; 80053; 82948 ×5; 83880; 84100; 84484; 85025 ×3; 85610; 85730; 87426; 93005; 99291; G0378 ×40; U0003; 90935

== ENCOUNTER → 2022-04-22 | Outpatient (CLI) | payer OTHER ==
[~2022-04-22] MED LIST changes: -ATOR40TA71 PO; -CYAN-35 PO; -DARU600T PO; +DOLU50TA PO; +ERGO50CA PO; -FOLI1TAB85 PO; +LEVO75 PO; -LEVO75TA10 PO; -OMEG-125 PO; +OMEG100033 PO; +PANT20TA PO; -RITO100T PO; +ZIDO300T13 PO; -[UNRECOGNIZED DRUG - CODE] PO
[2022-04-22 09:22] LABS: BASOPHILS % (AUTO) 0.1 % (0.0-5.0); HEMATOCRIT 34.1 % (36-48); LYMPHOCYTES % (AUTO) 3.7 % (21.0-51.0); MEAN CORPUSCULAR HEMOGLOBIN 41.4 pg (27.0-33.0); MEAN CORPUSCULAR HGB CONC 33.7 g/dL (32.0-36.0); MEAN CORPUSCULAR VOLUME 122.7 fL (79-99); NEUTROPHILS % (AUTO) 85.8 % (40.0-77.0); NUCLEATED RED BLOOD CELLS 0.3 % (0.0-0.19); PLATELET COUNT (AUTO) 54 K/uL (130-400); RED BLOOD CELL COUNT(AUTO) 2.78 MIL/uL (4.00-5.50); RED CELL DISTRIBUTION WIDTH 14.4 % (11.0-15.5); WHITE BLOOD COUNT (AUTO) 6.8 K/uL (4.8-10.8)
[2022-04-22 09:35] LABS: INR 1.23 (0.85-1.15); PROTHROMBIN TIME 13.3 SEC (9.6-11.6)
[2022-04-22 09:37] LABS: ALBUMIN 3.2 g/dL (3.5-5.0); CREATININE 5.2 mg/dL (0.5-1.5); POTASSIUM 4.4 mmol/L (3.5-5.1); TOTAL PROTEIN, SERUM 7.4 g/dL (6.0-8.3)
[2022-04-22 10:04] LABS: PLATELET MORPHOLOGY COMMENT MARKED DECREASE
== END | disposition home or self-care (01) ==
LOC: RAH 07:03
PROVIDERS: ATTEND Internal Medicine Gastroenterology
DX: K80.20 Calculus of gallbladder without cholecystitis without obstruction (principal); K74.60 Unspecified cirrhosis of liver; N26.1 Atrophy of kidney (terminal); N28.1 Cyst of kidney, acquired
CPT/HCPCS: 36415; 76700; 80053; 82105; 85025; 85610; 93975

== ENCOUNTER → 2022-09-16 | Outpatient (CLI) | payer OTHER | END | disposition home or self-care (01) | LOC: RAH 08:13 | PROVIDERS: ATTEND Internal Medicine Gastroenterology | DX: K80.20 Calculus of gallbladder without cholecystitis without obstruction (principal); K74.60 Unspecified cirrhosis of liver; N26.1 Atrophy of kidney (terminal); N28.1 Cyst of kidney, acquired | CPT/HCPCS: 76700; 93975 ==

== ENCOUNTER 2023-10-12 20:24 | Emergency (ER) | payer OTHER ==
[~2023-10-12] VITALS: Ht 149.9 cm; Wt 51.7 kg
[~2023-10-12 20:24] MED LIST changes: -LOSA100T58 PO; +LOSA100T59 PO
[2023-10-12 21:13] LABS: ADD UA MICROSCOPIC YES; APPEARANCE,URINE CLOUDY (CLEAR); BILIRUBIN,URINE NEGATIVE (NEGATIVE); COLOR,URINE YELLOW (YELLOW); GLUCOSE, URINE (UA) NEGATIVE (NEGATIVE); KETONES,URINE NEGATIVE (NEGATIVE); LEUKOCYTE ESTERASE ,URINE MODERATE Leu/uL (NEGATIVE); NITRATE,URINE NEGATIVE (NEGATIVE); OCCULT BLOOD,URINE SMALL (NEGATIVE); PH,URINE 8.5 (5.0-8.0); PROTEIN,URINE 100 mg/dL (NEGATIVE); UROBILINOGEN,URINE 0.2 mg/dL (0.2-1.0)
[2023-10-12 21:14] LABS: BASOPHILS # (AUTO) 0.01 K/uL (0.00-0.20); BASOPHILS % (AUTO) 0.2 % (0.0-5.0); IMMATURE GRANULOCYTE ABSOLUTE 0.02 K/uL (0-1); LYMPHOCYTES # (AUTO) 0.7 K/uL (1.0-4.8); LYMPHOCYTES % (AUTO) 14.2 % (21.0-51.0); MEAN CORPUSCULAR HEMOGLOBIN 30.7 pg (27.0-33.0); MEAN CORPUSCULAR HGB CONC 33.2 g/dL (32.0-36.0); MEAN CORPUSCULAR VOLUME 92.4 fL (79-99); MONOCYTES # (AUTO) 0.7 K/uL (0.1-1.0); MONOCYTES % (AUTO) 13.2 % (3.0-13.0); NEUTROPHILS # (AUTO) 3.6 K/uL (1.8-7.7); PLATELET COUNT (AUTO) 59 K/uL (130-400); RED BLOOD CELL COUNT(AUTO) 3.68 MIL/uL (4.00-5.50); RED CELL DISTRIBUTION WIDTH 14.4 % (11.0-15.5); WHITE BLOOD COUNT (AUTO) 4.9 K/uL (4.8-10.8)
[2023-10-12 21:21] LABS: BACTERIA,URINE FEW /HPF (None Seen); MUCUS,URINE RARE LPF (None Seen); NON-SQUAMOUS EPITHELIAL CELL 1 /HPF (0-2); OTHER CASTS, URINE 4 /LPF (None Seen); SQUAMOUS EPITHELIAL CELL,UR MOD /HPF (0-2); UNCLASSIFIED CRYSTAL 3 /HPF (None Seen); WBC CLUMP FEW /HPF (0-1)
[2023-10-12 21:22] LABS: CREATININE 5.7 mg/dL (0.5-1.0); POTASSIUM 4.1 mmol/L (3.5-5.1)
[2023-10-12 21:27] LABS: ALBUMIN 3.3 g/dL (3.5-5.0); BILIRUBIN,TOTAL 0.9 mg/dL (0.2-1.0); TOTAL PROTEIN, SERUM 8.2 g/dL (6.0-8.3)
[2023-10-12] MEDS: MAG/ALUM/SIMETH 30 ML UDCUP PO ONE (22:48)
[2023-10-12] MEDS: FAMOTIDINE 20MG TAB PO ONE (22:48)
[2023-10-12] MEDS: METOCLOPRAMIDE 5 MG TABLET PO SCH (22:48)
[2023-10-12] MEDS: ACETAMINOPHEN 325 MG TAB PO ONE (23:33)
[2023-10-12 23:57] VITALS: BP 153/72; PULSE 72; RESP 18; O2SAT 98
== END 2023-10-13 01:18 | disposition left against medical advice (07) ==
LOC: EDH 20:24
DX: R10.13 Epigastric pain (principal); B20 Human immunodeficiency virus [HIV] disease; I12.0 Hypertensive chronic kidney disease with stage 5 chronic kidney disease or end stage renal disease; N18.6 End stage renal disease; I21.4 Non-ST elevation (NSTEMI) myocardial infarction; Z79.899 Other long term (current) drug therapy; Z90.49 Acquired absence of other specified parts of digestive tract; Z90.710 Acquired absence of both cervix and uterus; Z98.890 Other specified postprocedural states
CPT/HCPCS: 36415; 71045; 80053; 81001; 82550; 83880; 84484; 85025; 87088; 93005

== ENCOUNTER → 2023-11-14 | Outpatient (CLI) | payer OTHER ==
[~2023-11-14] MED LIST changes: +AMLO-257 PO; +CINA30TA5 PO; +FAMO20TA8 PO; +FOLI0.8T22 PO; +ISOS30TA92 PO; +LORA10TA7 PO; +METO-408 PO; +METO5TAB2 PO; +SEVE800T7 PO; +[UNRECOGNIZED DRUG - MIXTURE] PO
== END | disposition home or self-care (01) ==
LOC: SHCH 10:06
PROVIDERS: ATTEND Internal Medicine Cardiovascular Disease
DX: I10 Essential (primary) hypertension (principal)
CPT/HCPCS: 93306